=== PATIENT | female | born 1995 | race Caucasian/White ===

== ENCOUNTER 2016-12-17 11:22 | Inpatient (IN) | payer BC, OTHER ==
[~2016-12-17] VITALS: Ht 157.5 cm; Wt 63.5 kg
[2016-12-17] MEDS ORDERED: ONDANSETRON ODT 4 MG TAB.RAPDIS SL PRN (16:30)
[2016-12-17] MEDS ORDERED: MAGNESIUM HYDROXIDE 30 ML LIQUID UDC PO PRN (16:30)
[2016-12-17] MEDS ORDERED: IBUPROFEN 600 MG TABLET PO PRN (16:30)
[2016-12-17] MEDS ORDERED: ACETAMINOPHEN 325 MG TABLET PO PRN (16:30)
[2016-12-17] MEDS ORDERED: diphenhydrAMINE 50 MG CAPSULE PO PRN (16:30)
[2016-12-17] MEDS ORDERED: LOPERAMIDE HCL 2 MG CAPSULE PO PRN ×2 (16:30)
[2016-12-17] MEDS ORDERED: BUPRENORPHINE HCL 2 MG TAB.SUBL SL PRN (16:30)
[2016-12-17] MEDS ORDERED: MAG HYDROX/AL HYDROX/SIMETH 30 ML LIQUID UDC PO PRN (16:30)
[2016-12-17] MEDS ORDERED: CLONIDINE HCL 0.1 MG TABLET PO PRN (16:30)
[2016-12-17] MEDS ORDERED: MIRALAX 17 GM POWD.PACK PO PRN (16:30)
[2016-12-17] MEDS ORDERED: DICYCLOMINE HCL 20 MG TABLET PO PRN (16:30)
[2016-12-17] MEDS ORDERED: ONDANSETRON 4 MG/2 ML VIAL IM PRN (16:30)
[2016-12-17 17:00] VITALS: BP 132/83
--- NOTE | 2016-12-17 17:00 | NUR ---
Pre-admission Notes: Seen client in intake at this time. Appears anxious and nervous. Reassurance was provided. Alert and oriented x 4. Verbally responsive. Able to answers questions readily during pre-admission interview. Patient education provided regarding the admission process. Patient verbalized good understanding. Able to answer questions readily regarding the admission process. Noted with good eye contact. Reports NKA. No seizure history. Verbalizes that she is here to detox from heroin, methamphetamine and Klonopin. 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 She reports that she was diagnosed with Depression and Anxiety in 2014. Her PCP is Dr. Oneill who she has not seen 2 months. COWS 3 BP 132/83, Pulse 95, Temp 98.2, RR 18, O2 sat at 97% via RA.
--- NOTE | 2016-12-17 17:58 | NUR ---
Admission Note: Admitted a 21 year old female under the care of Dr. Shady Barker for medically supervised detoxification from opiates, methamphetamine and BZO. Alert and oriented x 4. No changes in LOC noted since pre-in assessment. Respirations even and unlabored. No SOB noted. Body search done. No contraband found. Skin check done. Skin is intact. Noted with purple discoloration to right inner upper forearm, patient states it was from an abscess that healed. Also noted with bilateral hand trackmarks and bilateral AC trackmarks. Abdomen soft and non-distended. BS (+) in all 4 quadrants. No complains of abdominal pain or discomfort noted. Patient states that her LBM 2 days ago. Voids independently. Able to provide urine for UDS and HCG result. LMP was 1 week ago. Ambulatory ad allyson with steady gait. Substance Use; 1. Heroin - since 2011, Injects 0.5 grams intravenously QD x 30 days, last use was on 12/17/2016 at 1500 0.5 grams. 2. Methamphetamine - since 2014. Snorts "2 lines" QD x 30 days, last use was on 12/16/2016 at 1700 "2 lines" 3. Klonopin - since 8 years ago. Orally takes 3 to 4 mg tabs daily, last use was on 12/17/2016 at 1200 2 mg. Treatment History: 1. [facility] x 30 days [place] to December 2015. Patient states that she has a PCP named Dr. Oneill, last seen 2 months ago. Reports past medical hx of anxiety, depression in 2015. Dr. Barker made aware of patient's admission in the unit and orders were entered.
[2016-12-17 18:10] LABS: *URINE HCG, QUAL NEGATIVE (NEGATIVE); BASOPHILS # (AUTO) 0.1 K/uL (0.0-8.0); BASOPHILS % (AUTO) 1.1 % (0.0-2.0); EOSINOPHILS # (AUTO) 0.1 K/uL (0.0-0.7); EOSINOPHILS % (AUTO) 1.5 % (0.0-7.0); HEMATOCRIT 38.7 % (37-47); HEMOGLOBIN 12.6 G/DL (12.0-16.0); LYMPHOCYTES # (AUTO) 1.6 K/UL (0.8-4.8); LYMPHOCYTES % (AUTO) 23.4 % (20.5-51.5); MEAN CORPUSCULAR HGB CONC 33 g/dL (32.0-37.0); MONOCYTES # (AUTO) 0.6 K/UL (0.1-1.30); MONOCYTES % (AUTO) 9.2 % (0.0-11.0); NEUTROPHILS # (AUTO) 4.5 K/UL (1.8-8.9); NEUTROPHILS % (AUTO) 64.8 % (38.5-71.5); PLATELET COUNT (AUTO) 334 K/UL (150-450); WHITE BLOOD COUNT (AUTO) 6.9 K/UL (4.0-11.2)
[2016-12-17 18:21] LABS: ETHANOL < 3 MG/DL (0-0)
[2016-12-17 18:24] LABS: ALANINE AMINOTRANSFERASE 479 U/L (14-59); ALKALINE PHOSPHATASE 134 U/L (50-136); ASPARTATE AMINOTRANSFERASE 179 U/L (15-37); BILIRUBIN,TOTAL 0.3 mg/dL (0.2-1.0); CARBON DIOXIDE 29 mmol/L (21-32); CHLORIDE 103 mmol/L (98-107); CREATININE 0.7 mg/dL (0.6-1.3); GLUCOSE 116 mg/dL (74-106); MAGNESIUM 2.1 mg/dL (1.8-2.4); POTASSIUM 3.9 mmol/L (3.5-5.1); TOTAL PROTEIN, SERUM 7.6 g/dL (6.4-8.2); UREA NITROGEN, BLOOD 9 mg/dL (7-18)
[2016-12-17] MEDS ORDERED: LORAZEPAM 2 MG/1 ML VIAL IM PRN (18:30)
[2016-12-17] MEDS ORDERED: LORAZEPAM 1 MG TABLET PO PRN ×2 (18:30)
[2016-12-17 18:40] LABS: *AMPHETAMINE, URINE POSITIVE (NEGATIVE); *BARBITURATE, URINE NEGATIVE (NEGATIVE); *CANNABINOID, URINE NEGATIVE (NEGATIVE); *COCCAINE, URINE NEGATIVE (NEGATIVE); *OPIATE, URINE POSITIVE (NEGATIVE); *PHENCYCLIDINE SCREEN,URINE NEGATIVE (NEGATIVE)
--- NOTE | 2016-12-17 18:57 | NUR ---
End of Shift Notes: Endorsed patient to night nurse. Patient is in her room. No changes noted since upon admission. Last COWS 3. Safety precautions in place. On fall and seizure precautions. Call light kept in reach. Will continue to monitor.
--- NOTE | 2016-12-17 19:08 | NUR ---
Start of shift note Received report from day shift nurse. Pt is a 21 yo female, A+Ox4, presenting to [facility] for Opiate/Benzo/ Methamphetamine dependence. Pt has NKA, is on Full Code status, and on Regular diet. Pt has HX of Depression, Anxiety, and Spinal tap. Pt is on Fall and Seizure precautions. Pt is on 5 day Ativan and 5 day Subutex tapers, tolerated well. No s/s of distress noted at this time. Respirations even and unlabored. Will continue to monitor.
[2016-12-17 20:03] VITALS: BP 125/72
[2016-12-17] MEDS: GABAPENTIN 300 MG CAPSULE PO SCH (20:53)
[2016-12-17] MEDS ORDERED: LORAZEPAM 1 MG TABLET PO SCH (21:00)
[2016-12-17] MEDS: ACETAzolamide 250 MG TABLET PO SCH (21:06)
[2016-12-18 00:42] VITALS: BP 122/70
[2016-12-18 04:08] VITALS: BP 120/75
[2016-12-18] MEDS: METHOCARBAMOL 750 MG TABLET PO PRN (05:46)
[2016-12-18] MEDS: HYDROXYZINE PAMOATE 25 MG CAPSULE PO PRN (05:46)
--- NOTE | 2016-12-18 05:52 | NUR ---
PRN Robaxin, Vistaril, and Bentyl Pt c/o anxiety, muscle pain and stomach cramps and requested for PRN Robaxin, Vistaril, and Bentyl. Medications given and tolerated well. Will reassess within 1 HR. Will continue to monitor.
--- NOTE | 2016-12-18 06:50 | NUR ---
PRN Robaxin, Bentyl, and Vistaril Reassessment Medications effective. No s/s of ASE/distress noted at this time. Respirations even and unlabored. Will continue to monitor.
--- NOTE | 2016-12-18 07:00 | NUR ---
End of shift note Pt is a 21 yo female, A+Ox4, presenting to [facility] for Opiate/Benzo/ Methamphetamine dependence. Pt has NKA, is on Full Code status, and on Regular diet. Pt has HX of Depression, Anxiety, and Spinal tap. Pt is on Fall and Seizure precautions. Pt is on 5 day Ativan and 5 day Subutex tapers, tolerated well. Pt was given PRN Robaxin, Vistariol, and Bentyl @0552. Pt slept for a total of 10 HRS. Last COWS: 2 and Last CIWA: 2 @0400. No s/s of distress noted at this time. Respirations even and unlabored. Will endorse to day shift nurse.
[2016-12-18 08:00] VITALS: BP 90/62
--- NOTE | 2016-12-18 08:30 | NUR ---
Start of Shift Notes: Received patient in her room. Alert and oriented x 4. Respirations even and unlabored. No SOB noted. Skin warn and dry to touch. Abdomen soft and non-distended with (+) BS in all 4 quadrants. No complains of N/V/D or constipation noted. Bladder non-distended. Voids independently. Ambulatory ad allyson with steady gait. Patient is a 21 year old female admitted for opiate, metamphetamine and BZO dependence who was placed on a modified 5-day Ativan and 5-day Subutex taper as ordered. Initial taper will be started today. Prior to admssion, patient was using 1/2 gram of IV heroin, "2 lines" of methamphetamine and 3 to 4 mg of Klonopin, Has past medical hx of depression and anxiety, and spinal fluid tap in 2011. NKA. FULL CODE. Regular diet. On fall and seizure precautions. Educated patient on her current plan of care for the day and her medication regimen. Encouraged oral fluid intake and encouraged group participation to learn new skills to prevent relapse.
[2016-12-18] MEDS ORDERED: BUPRENORPHINE HCL 2 MG TAB.SUBL SL SCH (09:00)
[2016-12-18] MEDS ORDERED: TUBERCULIN,PURIF.PROT.DERIV. 5 TU/0.1 ML TEST ID ONE (09:00)
[2016-12-18] MEDS ORDERED: LORAZEPAM 1 MG TABLET PO SCH (09:00)
[2016-12-18] MEDS: ACETAzolamide 250 MG TABLET PO SCH ×2 (09:22→20:22)
[2016-12-18] MEDS: GABAPENTIN 300 MG CAPSULE PO SCH ×3 (09:22→20:22)
[2016-12-18] MEDS: MULTIVITAMINS,THERAPEUTIC TABLET PO SCH (09:22)
[2016-12-18] MEDS: ESCITALOPRAM OXALATE 10 MG TABLET PO SCH (10:29)
[2016-12-18] MEDS: QUETIAPINE FUMARATE 25 MG TABLET PO SCH ×3 (10:29→17:00)
--- NOTE | 2016-12-18 10:40 | NUR ---
MD communication Notified Dr Barker of pt EKG results "sinus tachycardia, possible left atrial enlargement, borderline ECG". NNO at this time.
[2016-12-18 12:00] VITALS: BP 103/68
[2016-12-18] MEDS: BUPRENORPHINE HCL 2 MG TAB.SUBL SL SCH ×3 (12:31→20:25)
[2016-12-18] MEDS: LORAZEPAM 1 MG TABLET PO SCH ×3 (12:31→20:22)
--- NOTE | 2016-12-18 15:59 | NUR ---
Gabapentin 300 mg PO not administered: Gabapentin 300 mg PO at 1500 not given. Patient is seen laying in bed with eyes closed. Breathing even and unlabored. In no distress noted.
[2016-12-18 16:00] VITALS: BP 106/64
--- NOTE | 2016-12-18 17:34 | NUR ---
Seroquel 50 mg not administered: Patient noted to be dozing on and off. However, able to verbalize her needs and her withdrawal symptoms. COWS 5/CIWA 3. MD aware. Per MD, ok to hold Seroquel 50 mg PO at this time, but give Ativan 2 mg PO and Subutex 4 mg SL as scheduled per taper. Will continue to monitor. VS stable.
--- NOTE | 2016-12-18 18:45 | NUR ---
End of Shift Notes: Patients modified 5-day Ativan and 5-day Subutex taper was initiated today. No adverse reactions noted. VS monitored closely. No significant abnormalities noted. Withdrawal symptoms were closely monitored. Initial COWS 8/CWA 8. Patient presented with anxiety, agitation, sweating, chills, cold flashes, piloerection of the skin, muscle aches and pains and abdominal discomfort. Last COWS 5/CIWA 3. Per patient, Ativan and Subutex has been helping her with her withdrawal symptoms. Patient was unable to participate in group and activity sessions due to her withdrawal symptoms. On fall and seizure precautions. Safety precautions in place. Will continue to monitor closely.
--- NOTE | 2016-12-18 19:50 | NUR ---
START OF SHIFT NOTE Pt is a 21 y/o female admitted for Heroin, Meth, and Klonopin dependence and use. Pt has NKA but reported a PMH of depression, anxiety, and spinal fluid (2011). Per day shift nurse pt was placed on a 5 day Subutex and Ativan (day 1). Per day shift nurse pt isn't having any a/r or s/e from the medication but is noted to be overly sedated. Pt didn't receive any PRNS during the day shift but Seroquel dose was held. Last COW: 5 and CIWA: 3 (1600). At this time pt is noted leaning to the left side of the bed asleep (side rail up for clients safety). Pt is aroused by name, but cannot keep eyes open and constantly falls asleep in the middle of conversation. Pt's breathing is even and unlabored; respirations are 12 breaths per minute. Pt denies any pain/discomfort at this time. Pt was encouraged to notify staff of any changes in condition or of any concerns. Pt verbalized an understanding. All safety measures in place. Will continue to monitor.
[2016-12-18 20:00] VITALS: BP 111/75
[2016-12-18] MEDS ORDERED: QUETIAPINE FUMARATE 100 MG TABLET PO SCH (21:00)
[2016-12-19] VITALS: BP 100/69
[2016-12-19 04:00] VITALS: BP 103/60
[2016-12-19 05:06] LABS: HEPATITIS B SURFACE AG Negative (Negative)
--- NOTE | 2016-12-19 06:18 | NUR ---
END OF SHIFT NOTE/HAND OFF NOTE Pt is a 21 y/o female admitted for Heroin, Meth, and Klonopin dependence and use. Pt has NKA but reported a PMH of depression, anxiety, and spinal fluid (2011). Pt continues on a 5 day Subutex and Ativan (day 2) and is tolerating medication well with no s/e or a/r noted or reported; however per contract technician doctor Seroquel 100 mg PO HS dose was held due to pt being heavily sedated. Last COW: 1 and CIWA: 0 (0400). Pt slept for a total of 7 hours. No changes in condition. All safety measures in place. Endorsed to nurse C.F to ensure monitoring is continued.
--- NOTE | 2016-12-19 07:15 | NUR ---
START OF SHIFT NOTE: RECEIVED PT FROM MAT TESTER NURSE, PT IS IN STABLE CONDITION AT THIS TIME NO S/S OF PAIN OR DISCOMFORT, PT IS SLEEPING AT THIS TIME NO REPORT OF SEIZURE ACTIVITY. PT IS ADMITTED FOR METH/BENZO/OPIATE WITHDRAWAL/DEPENDENCE. LAST COWS NOTED 1 AND CIWA 1. WILL CONTINUE TO MONITOR PT FOR ANY CHANGES.
[2016-12-19 09:00] VITALS: BP 128/92
[2016-12-19] MEDS ORDERED: LORAZEPAM 1 MG TABLET PO SCH (09:00)
[2016-12-19] MEDS ORDERED: BUPRENORPHINE HCL 2 MG TAB.SUBL SL SCH ×2 (09:00→15:00)
[2016-12-19] MEDS: QUETIAPINE FUMARATE 25 MG TABLET PO SCH (09:04)
[2016-12-19] MEDS: MULTIVITAMINS,THERAPEUTIC TABLET PO SCH (09:04)
[2016-12-19] MEDS: GABAPENTIN 300 MG CAPSULE PO SCH ×3 (09:04→21:47)
[2016-12-19] MEDS: LORAZEPAM 1 MG TABLET PO SCH ×2 (09:05→15:00)
[2016-12-19] MEDS: ESCITALOPRAM OXALATE 10 MG TABLET PO SCH (09:05)
[2016-12-19] MEDS: BUPRENORPHINE HCL 2 MG TAB.SUBL SL SCH ×2 (09:05→15:00)
[2016-12-19] MEDS: ACETAzolamide 250 MG TABLET PO SCH ×2 (09:05→21:48)
[2016-12-19 09:38] LABS: BILIRUBIN,DIRECT 0.1 mg/dL (0.0-0.2); BILIRUBIN,TOTAL 0.3 mg/dL (0.2-1.0); CREATININE 0.9 mg/dL (0.6-1.3); MAGNESIUM 2.1 mg/dL (1.8-2.4); POTASSIUM 3.7 mmol/L (3.5-5.1); TOTAL PROTEIN, SERUM 8.4 g/dL (6.4-8.2)
[2016-12-19 13:00] VITALS: BP 102/62
--- NOTE | 2016-12-19 14:00 | NUR ---
1500 SCHEDULED MEDICATIONS WERE HELD D/T SEDATION. RE-EVALUATED PT'S MEDICATIONS. WITH NEW ORDERS NOTED AND CARRIED OUT
[2016-12-19] MEDS: HYDROXYZINE PAMOATE 25 MG CAPSULE PO PRN (16:44)
[2016-12-19] MEDS: METHOCARBAMOL 750 MG TABLET PO PRN (16:44)
--- NOTE | 2016-12-19 16:56 | NUR ---
PT VERBALIZES HER BODY HURTS AND DOES NOT FEEL WELL, SHE VERBALIZES SHE IS WITHDRAWING, DESPITE HER UNABLE TO SIT UP OR STAY FULLY ALERT AND AWAKE, EXPLAINED TO PT SHE IS TOO SEDATED FOR MEDICATIONS, PT THEN BECAME AGITATED. PRN ROBAXIN AND VISTARIL WERE ADMINISTERED TO HELP WITH DISCOMFORT AND ANXIETY.
--- NOTE | 2016-12-19 17:10 | NUR ---
PT IS NOW PLACED ON 1:1 FOR SAFETY PRECAUTIONS
[2016-12-19 17:52] VITALS: BP 138/90
[2016-12-19] MEDS ORDERED: LORAZEPAM 1 MG TABLET PO ONE (19:00)
[2016-12-19] MEDS ORDERED: BUPRENORPHINE HCL 2 MG TAB.SUBL SL ONE (19:00)
--- NOTE | 2016-12-19 19:13 | NUR ---
END OF SHIFT NOTE: PT IS SEDATED AND PLACE ON A 1:1 FOR SAFETY PRECAUTIONS, PT IS ADMITTED TO [facility] FOR OPIATE/METH/BENZO WITHDRAWAL/DEPENDENCE. PT HAS NEW 1 TIME ODER FOR SUBUTEX AND ATIVAN IF PT HAS DISCOMFORT AND SHOWING WITHDRAWING SYMPTOMS. PTS LAST CIWA 5 AND COWS 3, PT WAS AGITATED AND HYSTERICAL ASKING TO SPEAK WITH CHON PINA REGARDING MEDICATIONS. AFTER PT WENT BACK TO HER ROOM PT FELL ASLEEP. WILL ENDORSE PT TO TRANSMISSION AND COORDINATION ENGINEER NURSE.
--- NOTE | 2016-12-19 19:48 | NUR ---
START OF SHIFT NOTE Pt is a 21 y/o female admitted for Heroin, Meth, and Klonopin dependence and use. Pt has NKA but reported a PMH of depression, anxiety, and spinal fluid (2011). Per day shift nurse pt continues on a 5 day Subutex and Ativan taper (day 2). Per day shift nurse pt isn't having any a/r or s/e from the medication but is still heavily sedated and taper medications had to be held. Pt received Robaxin 750 mg PO PRN and Vistaril 25 mg PO PRN during the day shift. Routine Seroquel order was changed to Q12H PRN and a x 1 order for Subutex 4 mg PO and Ativan 2 mg PO PRN was given per Dr in the event that the pt wakes up and experiences withdrawal symptoms.Last COW: 3 and CIWA: 5 (1600). Pt was placed on 1:1 supervision r/t safety precautions. At this time Pt is noted sleeping in bed with no signs of discomfort/distress. Pt's breathing is even and unlabored; respirations are 12 breaths per minute. Pt is partially aroused with touch but soon after waking up she falls back asleep. Pt cannot cooperate with assessment at this time due to sedation. Deferred until pt is awake and alert. All safety measures in place. Will continue to monitor.
[2016-12-19 20:00] VITALS: BP 108/64
[2016-12-19] MEDS: QUETIAPINE FUMARATE 25 MG TABLET PO PRN (21:47)
--- NOTE | 2016-12-19 21:47 | NUR ---
SEROQUEL PRN ADMINISTRATION Pt woke up stating " I just feel depressed. I was on a 3 day run and I wasn't getting any sleep." Pt is notably agitated and was offered Seroquel. With pt's verbal consent Seroquel 25 mg PO PRN was given. Pt was encouraged to notify staff of any changes in condition or of any concerns. Pt verbalized an understanding. All safety measures in place. Will monitor for effectiveness.
--- NOTE | 2016-12-19 22:47 | NUR ---
SEROQUEL PRN REASSESSMENT Pt is asleep at this time with no signs of discomfort/distress noted. Breathing is even an unlabored. Pt was aroused by light touch and the calling of her name. Pt stated " I'm better." and then fell right back asleep. PRN effective. All safety measures in place. Will continue to monitor.
[2016-12-20] VITALS: BP 95/64
[2016-12-20] MEDS ORDERED: LORAZEPAM 1 MG TABLET PO ONE ×2 (03:00→13:00)
[2016-12-20] MEDS: METHOCARBAMOL 750 MG TABLET PO PRN (03:07)
--- NOTE | 2016-12-20 03:07 | NUR ---
ATIVAN AND ROBAXIN PRN ADMINISTRATION Pt woke up requesting to be seen by her nurse stating " I don't feel good. I'm shaky and my body is aching. Can I get some medicine." Upon assessment pt is notably tremulous and anxious aeb limbs shaking and an accelerated HR of 128. Breathing is even and unlabored. Pupils are reactive to light and measure about 3 cm. No sweat observable and pt denies having any chills. Pt constantly dozes off during assessment and has to be re-aroused by calling her name. Vitals signs are as follows: BP: 95/65 HR: 128 R: 16 T: 98.3 O2 SAT: 95 %Pain:6/10 CIWA: 14. Pt received Ativan 2 mg PO x [address] Barker and Robaxin 750 mg PO PRN. Pt was encouraged to notify staff of any changes in condition or of any further concerns. Pt verbalized an understanding and then stated " I'm more awake than I was earlier. Can I go down for a cigarette?" Pt was encouraged to rest and give the medicine time to take effect but the pt still insisted on going for a smoke break. Pt was assisted to the smoking patio in a wheelchair by a [facility] staff member. Will monitor for effectiveness.
[2016-12-20] MEDS ORDERED: LORAZEPAM 1 MG TABLET ONE (03:17)
[2016-12-20 04:00] VITALS: BP 116/57
--- NOTE | 2016-12-20 04:00 | NUR ---
ATIVAN AND ROBAXIN PRN REASSESSMENT Pt's skin is dry and intact. Tremors can be felt but are not visible. Pt is still having trouble staying awake during assessment. Pt has to be aroused several times. Pt's HR is 113 at this time. Breathing is even and unlabored. Pt stated " I feel a little better. My body aches are going away." CIWA: 5 . PRNS effective. Pt was encouraged to notify staff of any changes in condition or of any concerns. Pt verbalized an understanding. All safety measures in place. Will continue to monitor.
--- NOTE | 2016-12-20 06:55 | NUR ---
END OF SHIFT NOTE Pt is a 21 y/o female admitted for Heroin, Meth, and Klonopin dependence and use. Pt has NKA but reported a PMH of depression, anxiety, and spinal fluid (2011). Pt continues on a 5 day Subutex and Ativan (day 3). Pt was heavily sedated throughout the shift and missed her 2100 dose of Subutex and Ativan. Pt woke up around 0300 and upon assessment CIWA was a 14. Pt was given Ativan 2 mg PO x 1 . Pt also received Seroquel 25 mg PO PRN and Robaxin 750 mg PO PRN during the shift. Pt continues on 1:1 supervision for safety precautions. Last COW: 5 and CIWA: 4 (0400). Pt slept for a total of 7 hours. All safety measures in place. Will endorse to the oncoming nurse.
--- NOTE | 2016-12-20 07:15 | NUR ---
Start Of Shift Report received. Pt is a 21 y/o female admitted on 12/17/16 for Heroin, Meth, and Klonopin dependence. Pt full code regular diet on fall and seizure precautions, denies any food or drug allergies. Pt continues on a 5 day Subutex and 5 day Ativan taper tolerating well. Pt is on a 1:1 supervision r/t safety precautions. last night pt received PRN Seroquel Ativan and Robaxin medications effective per shift production supervisor nurse. At this time Pt is noted sleeping in bed with no signs of discomfort/distress. Pt's breathing is even and unlabored at 12 breaths per minute. pt last CIWA was a 4 and COWS was a 5 taken at 0400. Pt slept a total of 7 hours last night. fluids encouraged to facilitate with detox process. All needs met, bed lock in lowest position, will continue to monitor and provide care.
[2016-12-20 08:00] VITALS: BP 119/70
[2016-12-20] MEDS ORDERED: BUPRENORPHINE HCL 2 MG TAB.SUBL SL SCH ×2 (09:00)
[2016-12-20] MEDS ORDERED: LORAZEPAM 1 MG TABLET PO SCH (09:00)
[2016-12-20] MEDS: GABAPENTIN 300 MG CAPSULE PO SCH ×3 (09:53→20:08)
[2016-12-20] MEDS: MULTIVITAMINS,THERAPEUTIC TABLET PO SCH (09:54)
[2016-12-20] MEDS: ACETAzolamide 250 MG TABLET PO SCH ×2 (09:54→20:08)
[2016-12-20] MEDS: LORAZEPAM 1 MG TABLET PO SCH ×4 (09:54→20:08)
[2016-12-20] MEDS: ESCITALOPRAM OXALATE 10 MG TABLET PO SCH (09:54)
[2016-12-20 12:00] VITALS: BP 121/90
[2016-12-20] MEDS: HYDROXYZINE PAMOATE 25 MG CAPSULE PO PRN (12:48)
[2016-12-20] MEDS: ACETAMINOPHEN ES 500 MG TABLET PO SCH ×2 (13:24→20:07)
--- NOTE | 2016-12-20 13:24 | NUR ---
ONETIME ATIVAN Upon assessment MD placed order for a one time Ativan 1 mg. Pts CIWA was a 6. All needs met will continue to monitor.
[2016-12-20] MEDS ORDERED: IBUPROFEN 800 MG TABLET PO PRN (13:30)
[2016-12-20] MEDS: busPIRone 10 MG TABLET PO SCH ×2 (15:09→17:51)
[2016-12-20] MEDS: BUPRENORPHINE HCL 2 MG TAB.SUBL SL SCH ×2 (15:10→20:08)
[2016-12-20 16:00] VITALS: BP 126/82
[2016-12-20] MEDS ORDERED: IBUPROFEN 600 MG TABLET PO PRN (16:30)
[2016-12-20] MEDS: HYDROXYZINE PAMOATE 25 MG CAPSULE PO SCH ×2 (16:30→22:30)
--- NOTE | 2016-12-20 19:21 | NUR ---
End Of Shift Pt is a 21 y/o female admitted on 12/17/16 for Heroin, Meth, and Klonopin dependence. Pt full code regular diet on fall and seizure precautions, denies any food or drug allergies. Pt continues on a 5 day Subutex and 5 day Ativan taper tolerating well. Pt remains compliant with the treatment plan. Patient encouraged adequate PO fluid intake as tolerated. Upon assessment patient presented with mild anxiety, and barely sweating with his last COWS score was a 4 and his CIWA was a 4. @1600. Detox medication effective at reducing withdrawal symptoms. Patient encouraged to attend group therapies/sessions to learn new coping skills to recent relapse, patient denies SI/HI. Pt ate all of the meals with total fluid intake 1683ml with 3 void and 1 bowel movement Pt received onetime Ativan 1 mg per MD order. Safety measures in place. Call light kept within reach. Patient endorsed to overnight houseperson nurse, all pertinent information discussed.
--- NOTE | 2016-12-20 19:58 | NUR ---
START OF SHIFT NOTE Pt is a 21 y/o female admitted for Heroin, Meth, and Klonopin dependence and use. Pt has NKA but reported a PMH of depression, anxiety, and spinal fluid (2011). Per day shift nurse pt continues on a 5 day Subutex and Ativan taper (day 3) and is tolerating medication well with no s/e or a/r reported. Pt received Ativan 1 mg PO x 1 during the day shift. Last COW: 4 and CIWA: 4 (1600). Pt's 1:1 supervision was discontinued during the day shift. At this time pt is in her bathroom putting on makeup. Upon assessment pt began crying and breathing rapidly. Pt stated " I just have so much anxiety." Pt reported having chills and hot flashes. Mild tremors observed. Nursing interventions implemented to help the pt feel more at ease. Vitals signs were taken and the continuing education dean doctor was contacted via charge nurse. New orders given for a EKG STAT due to pt's resting HR of 144. Orders noted and carried out. All safety measures in place. Will continue to monitor.
[2016-12-20 20:00] VITALS: BP 154/85
--- NOTE | 2016-12-20 20:15 | NUR ---
CLONIDINE PRN ADMINISTRATION Pt stated " I feel anxious and restless. Can I have something to help me relax?" Clonidine 0.1 mg PO PRN was given. Pt was encouraged to notify staff of any changes in condition or of any concerns. Pt verbalized an understanding. All safety measures in place. Will monitor for effectiveness.
--- NOTE | 2016-12-20 21:15 | NUR ---
CLONIDINE PRN REASSESSMENT Pt stated " I feel a little better." PRN was effective. All safety measures in place. Will monitor for effectiveness
[2016-12-21] VITALS: BP 133/90
--- NOTE | 2016-12-21 00:23 | NUR ---
RN note PRN Hydralazine Dr. Ley ordered Hydralazine 25 mg PO Q6H PRN for Systolic >160 mmHg and Diastolic > 100 mmHg.
[2016-12-21] MEDS ORDERED: hydrALAZINE HCL 25 MG TABLET PO PRN (00:30)
[2016-12-21 04:00] VITALS: BP 106/62
[2016-12-21] MEDS: HYDROXYZINE PAMOATE 25 MG CAPSULE PO SCH ×4 (04:30→22:30)
--- NOTE | 2016-12-21 04:52 | NUR ---
VISTARIL MEDICATION REFUSAL Pt refused Vistaril 50 mg PO PRN at this time. Pt was encouraged x 3 with risks and benefits explained , but the pt still declined medication. Medication was accidentally documented as administered in the EMAR. Medication was not administered and was not pulled from the Pyxis.
[2016-12-21] MEDS: ACETAMINOPHEN ES 500 MG TABLET PO SCH ×3 (05:00→20:15)
--- NOTE | 2016-12-21 07:11 | NUR ---
END OF SHIFT NOTE Pt is a 21 y/o female admitted for Heroin, Meth, and Klonopin dependence and use. Pt has NKA but reported a PMH of depression, anxiety, and spinal fluid (2011). Pt continues on a 5 day Subutex and Ativan (day 4). Pt was given Clonidine 0.1 mg PO PRN during the shift. Last COW: 3 and CIWA: 1 (0400). Pt slept for a total of 7 hours. All safety measures in place. Will endorse to the oncoming nurse.
[2016-12-21 08:00] VITALS: BP 105/62
--- NOTE | 2016-12-21 08:00 | NUR ---
START OF SHIFT NOTE Received patient this morning Aox4. Patient presents drowsy and fatigued. She states she feels anxious, shakey, and is hot/cold. She is on 5 day Ativan/5 day Subutex taper. COWS 6 CIWA 5 this morning. PRN Clonidine given per university teacher and patient slept 8 hours. Encouraged patient to increase fluid intake. Encouraged patient to take a shower and attend groups and activities this shift. Will provide safe and supportive environment. Will monitor closely and offer help as needed. All needs currently met.
[2016-12-21] MEDS: ACETAzolamide 250 MG TABLET PO SCH ×2 (08:26→20:15)
[2016-12-21] MEDS: LORAZEPAM 1 MG TABLET PO SCH ×3 (08:26→20:15)
[2016-12-21] MEDS: MULTIVITAMINS,THERAPEUTIC TABLET PO SCH (08:26)
[2016-12-21] MEDS: busPIRone 10 MG TABLET PO SCH ×3 (08:27→16:07)
[2016-12-21] MEDS: ESCITALOPRAM OXALATE 10 MG TABLET PO SCH (08:27)
[2016-12-21] MEDS: BUPRENORPHINE HCL 2 MG TAB.SUBL SL SCH ×3 (08:27→20:16)
[2016-12-21] MEDS: GABAPENTIN 300 MG CAPSULE PO SCH ×3 (08:27→20:15)
[2016-12-21] MEDS ORDERED: LORAZEPAM 1 MG TABLET PO SCH (09:00)
[2016-12-21] MEDS ORDERED: BUPRENORPHINE HCL 2 MG TAB.SUBL SL SCH (09:00)
[2016-12-21 12:00] VITALS: BP 122/89
[2016-12-21 16:00] VITALS: BP 123/83
--- NOTE | 2016-12-21 17:58 | NUR ---
CLIENT NOTED TO BE UNSTEADY WALKING IN HALLS. CLIENT PLACED ON 1:1 FOR SAFETY REASONS
--- NOTE | 2016-12-21 18:51 | NUR ---
END OF SHIFT NOTE PATIENT CONTINUES ON 5 DAY ATIVAN/5 DAY SUBUTEX TAPER. NO PRNS GIVEN DURING SHIFT. COWS 6 CIWA 6. PATIENT PRESENTS DRAMATIC AND ANXIOUS. SHE PRESENTS WITH UNSTEADY GAIT. CLIENT PLACED ON 1:1 FOR SAFETY MEASURES AND OBSERVATION. COWS 6 CIWA 6. TB TEST READ DURING SHIFT AND WAS NEGATIVE. BED LOCKED IN LOWEST POSITION, CALL [place] WITHIN REACH, SIDE RAILS UP X2 AND PADDED. SITTER AT BEDSIDE. WILL ENDORSE TO NIGHT NURSE.
--- NOTE | 2016-12-21 19:45 | NUR ---
START OF SHIFT Received report from day shift nurse. Pt is in her room resting. 1:[address] for safety due to unsteady gait Pt is a 21 yo female admitted to [facility] on 12/17 for opiate and BZD dependence. She is A&O x4 and ambulatory. NKA, full code status, and on a regular diet. She has a PMH of anxiety, depression, and spinal tap in 2011. On admission she reported using heroin IV 0.5 grams per day, klonopin 3-4mg per day, and methamphetamine "2 lines". She is ordered a 5 days Subutex taper and 5 day Ativan taper. Pt presents crying and she reports anxiety, chills, and body aches. Provided support. Tapers due tonight. Fall and seizure precautions in place. Bed is down with call light in reach.
[2016-12-21 20:00] VITALS: BP 111/72
[2016-12-22] VITALS: BP 110/66
[2016-12-22 04:00] VITALS: BP 112/68
[2016-12-22] MEDS: HYDROXYZINE PAMOATE 25 MG CAPSULE PO SCH ×4 (04:32→22:26)
[2016-12-22] MEDS: ACETAMINOPHEN ES 500 MG TABLET PO SCH (04:32)
--- NOTE | 2016-12-22 07:05 | NUR ---
END OF SHIFT Report provided to day shift nurse. Pt is lying in bed resting with a 1:[address] for safety due to unsteady gait Pt is a 21 yo female admitted to [facility] on 12/17 for opiate and BZD dependence. She is A&O and ambulatory with minimal assistance. She uses a wheelchair as needed. NKA, full code status, and on a regular diet. She has a PMH of anxiety, depression, and spinal tap in 2011. On admission she reported using heroin IV 0.5 grams per day, klonopin 3-4mg per day, and methamphetamine 2 lines. She is ordered a 5 days Subutex taper and 5 day Ativan taper. No PRN medications administered. Last COWS 7 and CIWA 5. She drank 1855mL and slept for 7 hours. Fall and seizure precautions in place. Bed is down with call light in reach.
--- NOTE | 2016-12-22 07:05 | NUR ---
Start of Shift Endorsement received from nightshift nurse. Pt is a 21 y/o female admitted for Heroin, methamphetamine and klonopin dependence. Pt has been placed on a 5 day Subutex and 5 day ativan taper. Pt is moderately withdrawing at this time AEB COWS 7, CIWA 5 at 0400. Pt did not receive any PRN medications and reports sleeping for 7 hours. VS WNL with an elevated HR above 100. Full Code. PT is alert and oriented x4. Pt is in STABLE condition at this time. Remains compliant with medication and diet regimen. All needs have been met, All safety measures in place per hospital policy. Bed in lowest position, side rails up x2, call-light within reach. Will continue to monitor
[2016-12-22 08:00] VITALS: BP 115/78
[2016-12-22] MEDS: ACETAzolamide 250 MG TABLET PO SCH ×2 (08:45→20:36)
[2016-12-22] MEDS: ESCITALOPRAM OXALATE 10 MG TABLET PO SCH (08:45)
[2016-12-22] MEDS: MULTIVITAMINS,THERAPEUTIC TABLET PO SCH (08:45)
[2016-12-22] MEDS: busPIRone 10 MG TABLET PO SCH ×3 (08:46→16:20)
[2016-12-22] MEDS: GABAPENTIN 300 MG CAPSULE PO SCH ×2 (08:46→14:18)
[2016-12-22] MEDS ORDERED: BUPRENORPHINE HCL 2 MG TAB.SUBL SL SCH (09:00)
[2016-12-22] MEDS ORDERED: LORAZEPAM 1 MG TABLET PO SCH ×2 (09:00→21:00)
[2016-12-22 12:00] VITALS: BP 135/92
[2016-12-22] MEDS ORDERED: ACETAMINOPHEN 325 MG TABLET PO PRN (12:30)
[2016-12-22] MEDS: BUPRENORPHINE HCL 2 MG TAB.SUBL SL SCH ×3 (13:18→20:36)
[2016-12-22] MEDS ORDERED: LORAZEPAM 1 MG TABLET PO ONE (14:00)
--- NOTE | 2016-12-22 14:23 | NUR ---
PT repeatedly displays med-seeking behavior. Pt has requested more medications from the doctor and repeatedly asks to speak to the doctor.
[2016-12-22 16:00] VITALS: BP 140/96
[2016-12-22] MEDS: QUETIAPINE FUMARATE 25 MG TABLET PO PRN (16:20)
--- NOTE | 2016-12-22 18:41 | NUR ---
End of Shift Endorsement received from nightshift nurse. Pt is a 21 y/o female admitted for Heroin, methamphetamine and klonopin dependence. Pt has been placed on a 5 day Subutex and 5 day ativan taper. Pt is moderately withdrawing at this time AEB COWS 11, CIWA 12 at 1600. Pt received PRN Seroquel and one time dose of Subutex 4mg and one time dose of Ativan per Dr. Barker. Pt repeatedly shows med seeking behavior. Pt has been educated on deep breathing technique to help relieve anxiety. Pt appears agitated despite receiving several PRN medications. VS WNL with an elevated HR above 120. Full Code. PT is alert and oriented x4. Pt is in STABLE condition at this time. Remains compliant with medication and diet regimen. All needs have been met, All safety measures in place per hospital policy. Bed in lowest position, side rails up x2, call-light within reach. Will continue to monitor
--- NOTE | 2016-12-22 18:49 | NUR ---
START OF SHIFT NOTE Patient endorsed by oil rag washer nurse. Report received. Patient is a 21 year old female admitted to [facility] on 12/17/2016 for Benzodiazepines, Opioid, and Methamphetamine dependence, placed on 5 day Ativan and 5 day Subutex taper since 12/18/2016, which tolerated well without ASE. Patient remains compliant with treatment, medications, and diet regime. Patient reports NKA. Patient is on Full Code, is on Regular Diet, is on Fall and Seizures Precautions. Patient denies History of Seizures. Past Medical History: Anxiety, Depression, Spinal fluid (tap) in 2011, Substance abuse, Tobacco dependence. Patient reports substance use: Heroin via IV: "0.5 gram every day since 11/17/2016. Last used 0.5 gram on 12/17/2016". Methamphetamine: "snored 2 lines since 11/17/2016. Last time used 2 lines on 12/16/2016". Klonopin PO: "3-4 mg since 11/17/2016. Last used 2 mg on 12/17/2016". Patient reports Treatment History in "[facility]" during 30 days". Upon admission, patient is in the room. Patient is alert and oriented x4. VS WNL with HR = 119. Patient 's stable at this time. COWS 10, CIWA 9. Patient presented with anxiety, agitation, nervousness, tremors that can felt, sweats, tachycardia, and restlessness. Respirations unlabored and even. Lungs Sounds are clear bilaterally. Bowel Sounds active in all x4 quadrants. Last Bowel Movement was "12/22/16 at 1000". Skin is intact, warm and dry to touch. Patient discoloration on Right arm and track chappell on the both hands. Encouraged fluids as tolerated. All needs met. Safety measures on place. Call light within reach, bed in lowest position and locked, padded rails up bilaterally rails up bilaterally. Will continue to monitor closely. Addendum: 07/18/17 at 0432 by DILLAN GREGORY RN Upon endorsement, patient is in the room.
[2016-12-22 20:00] VITALS: BP 115/78
[2016-12-22] MEDS ORDERED: GABAPENTIN 300 MG CAPSULE PO SCH (21:00)
[2016-12-23] VITALS: BP 130/90
[2016-12-23 04:00] VITALS: BP 124/81
[2016-12-23] MEDS: HYDROXYZINE PAMOATE 25 MG CAPSULE PO SCH ×2 (04:30→10:20)
--- NOTE | 2016-12-23 06:52 | NUR ---
END OF SHIFT NOTE Patient endorsed to dayshift nurse in stable condition. Report given. Patient is a 21 year old female admitted to [facility] on 12/17/2016 for Benzodiazepines, Opioid, and Methamphetamine dependence, continue 5 day Ativan and 5 day Subutex taper since 12/18/2016, which tolerated well without ASE. Patient remains compliant with treatment, medications, and diet regime. Patient reports NKA. Patient is on Full Code, is on Regular Diet, is on Fall and Seizures Precautions. Patient denies History of Seizures. Past Medical History: Anxiety, Depression, Spinal fluid (tap) in 2011, Substance abuse, Tobacco dependence. Patient reports substance use: Heroin via IV: "0.5 gram every day since 11/17/2016. Last used 0.5 gram on 12/17/2016". Methamphetamine: "snored 2 lines since 11/17/2016. Last time used 2 lines on 12/16/2016". Klonopin PO: "3-4 mg since 11/17/2016. Last used 2 mg on 12/17/2016". Patient reports Treatment History in "[facility]" during 30 days". Patient was stable during night. Last COWS at 0400 decreased from 10 to 9, and CIWA decreased from 9 to 4 at 0400. During my shift coordinator patient presented with anxiety, agitation, nervousness, nasal stuffy/moist eyes, tremors that can be felt, sweats, tachycardia, yawning, and restlessness. VS at 0400: T: 98'4; BP: 124/81; HR: 103; RR: 14; O2 SAT: 95%, pain level:"0/10". Respirations are unlabored and even. Patient denies SOB and chest pain. Skin is intact, warm and dry to touch. Patient's discoloration on the Right arm, with track chappell on the both hands. Encouraged fluids as tolerated. Patient slept 8 hours, intake 850 ml, voided x1. All needs met. Safety measures on place. Call light within reach, bed in lowest position and locked, padded rails up bilaterally rails up bilaterally.
--- NOTE | 2016-12-23 07:00 | NUR ---
Start of Shift Notes: Received patient in his room. Appears drowsy and sedated. Unable to carry on a conversation. Oriented x 4. Able to make her needs known. Poor eye contact. Respirations even and unlabored. No SOB noted. Skin warm and dry to touch. Abdomen soft and non-distended with (+) BS in all 4 quadrants. No complains of N/V/D or constipation noted. Bladder non-distended. Hygiene encouraged. Appears disheveled. Ambulatory ad allyson with steady gait. Patient is a 21 year old female admitted on 12/17/2016 for opiate, methamphetamine and BZO dependence who was placed on 5-day Subutex and 5-day Ativan taper that has been extended. Has past medical hx of depression, anxiety and spinal fluid tap. Prior to admission, patient was using 1/2 gram of IV heroin, "2 lines" of methamphetamine and 3 to 4 mg of Klonopin daily x 30 days. Patient has NKA. FULL CODE. Regular diet. On fall and seizure precautions. No seizure history. Educated patient on her current plan of care for the day and her medication regimen, however patient is unable to focus and dozes off. Encouraged oral fluid intake. Will continue to monitor closely.
[2016-12-23 08:00] VITALS: BP 125/82
[2016-12-23] MEDS ORDERED: BUPRENORPHINE HCL 2 MG TAB.SUBL SL SCH ×2 (09:00)
[2016-12-23] MEDS ORDERED: GABAPENTIN 300 MG CAPSULE PO SCH (09:00)
[2016-12-23] MEDS ORDERED: LORAZEPAM 1 MG TABLET PO SCH (09:00)
[2016-12-23] MEDS: ACETAzolamide 250 MG TABLET PO SCH ×2 (10:18→21:48)
[2016-12-23] MEDS: ESCITALOPRAM OXALATE 10 MG TABLET PO SCH (10:19)
[2016-12-23] MEDS: MULTIVITAMINS,THERAPEUTIC TABLET PO SCH (10:19)
[2016-12-23] MEDS: busPIRone 10 MG TABLET PO SCH ×3 (10:19→17:17)
--- NOTE | 2016-12-23 10:20 | NUR ---
Late med administration: Patient woke up agitated, requesting for med to be given at this time. Notified MD Barker. Per , OK to administer all 0900 meds at this time per patient's request. COWS 6/CIWA 4.
--- NOTE | 2016-12-23 10:27 | NUR ---
Vistaril 25 mg PO not adminstered: Patient refused Vistaril 25 mg PO at this time. States, "That does not help me at all." Education provided. Will continue to monitor.
--- NOTE | 2016-12-23 11:45 | NUR ---
Transfer of Care: Care transferred to receiving nurse. All pertinent information were explained and discussed. Last COWS/CIWA and VS also discussed.
--- NOTE | 2016-12-23 11:46 | NUR ---
Assume care Chaplain Resident assumes care of pt during shift after receiving report.
[2016-12-23 12:30] VITALS: BP 128/92
[2016-12-23] MEDS: GABAPENTIN 300 MG CAPSULE PO SCH ×2 (14:18→21:48)
[2016-12-23] MEDS: LORAZEPAM 1 MG TABLET PO SCH ×2 (14:18→21:48)
[2016-12-23] MEDS: BUPRENORPHINE HCL 2 MG TAB.SUBL SL SCH ×2 (14:19→21:49)
[2016-12-23 16:40] VITALS: BP 125/91
[2016-12-23] MEDS: QUETIAPINE FUMARATE 25 MG TABLET PO PRN (17:17)
[2016-12-23] MEDS: HYDROXYZINE PAMOATE 25 MG CAPSULE PO PRN (17:17)
--- NOTE | 2016-12-23 17:20 | NUR ---
PRN Administration Pt made requests to MD for an increase in medication, Dr. Barker educated pt on need to try something new and asked sports book writer to administer Seroquel and Vistaril for pt's anxiety. Pt has been complaining of increasing anxiety related to her perception of being unheard by staff and peers. Will continue to monitor, support and encourage according to plan of care.
--- NOTE | 2016-12-23 18:20 | NUR ---
PRN Re-Assessment Medication effective, pt currently resting in her room with eyes closed. Respirations even and unlabored. Will continue to monitor, support and encourage according to plan of care.
--- NOTE | 2016-12-23 19:29 | NUR ---
End of Shift Report provided to oncoming nurse, pt is in stable condition and cooperative with treatment plan. Pt is a 21 year old female admitted on 12/17/16 for Opiate, methamphetamine and benzodiazepine detoxification. Pt is full code and has NKDA and is on a regular diet. PMH of anxiety, depression and a spinal tap in 2011. Pt is currently on fall and seizure and universal precautions. Pt skin intact. Pt was administered Vistaril at 1027, reportedly ineffective as pt continued to complain of anxiety. Pt is currently on extended 5 day Ativan and Subutex tapers. Pts last COWS of 6 and CIWA of 3 recorded at 1600. Pt has been needy, emotional, somatic and dramatic, requiring support and encouragement thru out shift, able to make needs known .Pt has been noted to be sedated and lethargic at times and continues to request medication. Bed is in low position, with wheels locked, side rails up x2 and call light within reach.
[2016-12-23 20:00] VITALS: BP 119/75
--- NOTE | 2016-12-23 20:00 | NUR ---
START OF SHIFT NOTE PATIENT IN ROOM, RESTING. PATIENT ALERT AND ORIENTED X 3. RESPIRATION EVEN AND UNLABORED. PATIENT NOTED EMOTIONAL, C/O ANXIETY, NOTED PILOERECTION OF SKIN , NO N/V. DENIES ANY PAIN. RELAXATION TECHNIQUE PROVIDED AND POSITIVE ENCOURAGEMENT GIVEN. RECEIVED REPORT FROM DAY SHIFT NURSE. PATIENT IS A 21 YEAR OLD FEMALE, ADMITTED FOR OPIATE/BENZO DEPENDENCE. PATIENT IS ON 5 DAY ATIVAN AND 5 DAY SUBUTEX TAPER. PER DAY SHIFT NURSE, PATIENT HAS BEEN EMOTIONAL, DRAMATIC, REQUIRING SUPPORT AND ENCOURAGEMENT THROUGHOUT THE DAY. PATIENT UNABLE TO FOCUS AND DOZES OFF BUT STILL CONTINUE TO ASK FOR PRN MEDICATIONS. PATIENT WAS GIVEN PRN SEROQUEL AND VISTARIL X 2. LAST COWS 6 AND CIWA 3. ON FALL/SEIZURE PRECAUTION. SAFETY MEASURES IN PLACE. CALL LIGHT IN REACH. WILL CONTINUE TO MONITOR
--- NOTE | 2016-12-23 22:12 | NUR ---
THAD CAMACHO ADMINISTRATION PATIENT REQUESTS FOR SLEEP AID. THAD CAMACHO GIVEN. WILL MONITOR FOR EFFECTIVENESS Addendum: 12/24/16 at 0604 by DAMARIS IRENE LVN ERROR: THIS CHARTING IS FOR ANOTHER PATIENT
--- NOTE | 2016-12-24 | NUR ---
COWS/CIWA/VS PATIENT ASLEEP. COWS/CIWA UNABLE TO ASSESS. NO S/S OF DISTRESS. RESPIRATION EVEN AND UNLABORED. RR 14. SAFETY MEASURES IN PLACE. CALL LIGHT IN REACH. WILL CONTINUE TO MONITOR.
--- NOTE | 2016-12-24 04:00 | NUR ---
COWS/CIWA/VS PATIENT ASLEEP. COWS/CIWA UNABLE TO ASSESS. NO S/S OF DISTRESS. RESPIRATION EVEN AND UNLABORED. RR 15. SAFETY MEASURES IN PLACE. CALL LIGHT IN REACH. WILL CONTINUE TO MONITOR.
--- NOTE | 2016-12-24 07:18 | NUR ---
END OF SHIFT NOTE PATIENT REMAIN ALERT AND ORIENTED X 3. RESPIRATION EVEN AND UNLABORED. PATIENT EMOTIONAL, C/O ANXIETY, NOTED PILOERECTION OF SKIN , NO N/V. DENIES ANY PAIN . CONTINUE PATIENT IS ON 5 DAY ATIVAN AND 5 DAY SUBUTEX TAPER FOR OPIATE AND BENZO DEPENDENCE. CONTINUE TO PROVIDE SUPPORT AND ENCOURAGEMENT DURING SHIFT. DID NOT REQUIRE ANY PRN MEDICATION . ON FALL/SEIZURE PRECAUTION. PATIENT REMAIN FREE OF INJURY. SAFETY MEASURES IN PLACE. CALL LIGHT IN REACH. WILL CONTINUE TO MONITOR. SLEPT9 HOURS. FLUID INTAKE 1,710 ML. VOIDED X 4. BM X 2. LAST COWS 7 AND CIWA 5 .
--- NOTE | 2016-12-24 07:52 | NUR ---
Start of Shift Received report from night staff. Pt is a 21 year old female admitted on 12/17/16 for Heroin, Methamphetamine and Klonopin detoxification. Pt is a full code, on a regular diet and has NKA. Pt has PMH of depression, anxiety and a 2012 Spinal Tap. No seizure history. Pt on universal and fall precautions. Pt had no PRN medication administered during the night cleaner. Last COWS of 7 and CIWA of 5 recorded at 2000. Pt currently on a 5 day Subutex and Ativan taper, tolerating well. Pt slept a total of 9 hours per report. Skin is intact with some discoloration on right FA and track chappell on bi-lateral hands. Warehouse Receiving Supervisor encounters pt in bed resting with eyes closed and even and unlabored respiration. No s/s of distress noted. Bed in low position, wheels locked and call light in reach. All safety measures in place epr policy. Will continue to monitor, support and encourage according to plan of care.
[2016-12-24 08:36] VITALS: BP 127/68
[2016-12-24] MEDS ORDERED: BUPRENORPHINE HCL 2 MG TAB.SUBL SL SCH (09:00)
[2016-12-24] MEDS ORDERED: LORAZEPAM 1 MG TABLET PO SCH (09:00)
[2016-12-24] MEDS: LORAZEPAM 1 MG TABLET PO SCH ×2 (09:08→20:48)
[2016-12-24] MEDS: ESCITALOPRAM OXALATE 10 MG TABLET PO SCH (09:08)
[2016-12-24] MEDS: GABAPENTIN 300 MG CAPSULE PO SCH ×3 (09:08→20:49)
[2016-12-24] MEDS: busPIRone 10 MG TABLET PO SCH ×3 (09:08→16:27)
[2016-12-24] MEDS: ACETAzolamide 250 MG TABLET PO SCH ×2 (09:08→20:48)
[2016-12-24] MEDS: MULTIVITAMINS,THERAPEUTIC TABLET PO SCH (09:08)
[2016-12-24] MEDS: BUPRENORPHINE HCL 2 MG TAB.SUBL SL SCH ×2 (09:09→20:49)
[2016-12-24 13:01] VITALS: BP 118/86
[2016-12-24] MEDS: HYDROXYZINE PAMOATE 25 MG CAPSULE PO PRN (13:08)
[2016-12-24] MEDS: QUETIAPINE FUMARATE 25 MG TABLET PO PRN (13:10)
--- NOTE | 2016-12-24 13:10 | NUR ---
PRN Administration Pt complains of anxiety and irritability. Non-pharmacological interventions attempted x3 with no relief per pt. Pt inquires of Lucero Pacheco, on the unit at the time, for the availability of Seroquel. Lock Tender Chief Operator administers Seroquel and Vistaril per MD Order to help with anxiety and irritability. Will continue to monitor, support and encourage according to plan of care.
--- NOTE | 2016-12-24 14:10 | NUR ---
Therapist prompted client about group times. Client stated she will attend all groups today.
--- NOTE | 2016-12-24 14:10 | NUR ---
PRN Re-assessment Pt currently resting in room with eyes closed. Medication effective. Will continue to monitor, support and encourage according to plan of care.
[2016-12-24 16:25] VITALS: BP 120/87
--- NOTE | 2016-12-24 19:13 | NUR ---
End of Shift Reported off to night clerk with no further comments, questions or concerns voiced. Pt is a 21 year old female admitted on 12/17/16 for Heroin, Methamphetamine and Klonopin detoxification. Pt is a full code, on a regular diet and has NKA. Pt has PMH of depression, anxiety and a 2012 Spinal Tap. No seizure history. Pt on universal and fall precautions. Pt requested Seroquel and Vistaril, for anxiety and irritability, which was administered at 1310 and was effective.. Last COWS of 6 and CIWA of 6 recorded at 1600. Pt currently on a modified Subutex and Ativan taper, tolerating well. Skin is intact with some discoloration on right FA and track chappell on bi-lateral hands. Pt has been somnolent most of the day, but complains of anxiety, pt affect does not support. Pt is med seeking and makes many requests for different medication. Pt is cooperative and polite. Bed in low position, wheels locked and call light in reach. All safety measures in place per hospital policy.
[2016-12-24 20:00] VITALS: BP 135/93
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
[2016-12-24] MEDS: QUETIAPINE FUMARATE 25 MG TABLET PO SCH (20:53)
[2016-12-24] MEDS ORDERED: QUETIAPINE FUMARATE 25 MG TABLET PO PRN (21:00)
--- NOTE | 2016-12-24 23:11 | NUR ---
PRN MEDICATION: Prn Benadryl 50 mg p.o. given per request for sleep medication.
[2016-12-24] MEDS: KETOROLAC TROMETHAMINE 30 MG INJ IM PRN (23:12)
--- NOTE | 2016-12-24 23:12 | NUR ---
PRN MEDICATION: Prn Toradol 30 mg IM given in RUOQ per request for c/o acute aching back pain, 10/10 pain scale.
--- NOTE | 2016-12-25 | NUR ---
Patient refused to be awakened for V/S to be done at this time.
--- NOTE | 2016-12-25 04:00 | NUR ---
Patient refused to be awakened for V/S to be done at this time.
--- NOTE | 2016-12-25 06:30 | NUR ---
0630 Patient slept a total of 6 hours and she had 3 voids and no stools. Total intake was 710 ml p.o. Prn medications given noted separately per floor protocol. V/SS afebrile, last COWS 5, last CIWA 5. Patient admitted on 12/17/16 for: Heroin, Methamphetamine and Klonopin withdrawal and she has been on a 5-Day Ativan medication taper and a 5-Day Subutex medication taper, both of which she has apparently been tolerating well. Patient is presently sleeping soundly with eyes closed and respirations even, unlabored at 12.
[2016-12-25 08:00] VITALS: BP 107/67
[2016-12-25] MEDS ORDERED: BUPRENORPHINE HCL 2 MG TAB.SUBL SL SCH ×2 (09:00)
[2016-12-25] MEDS ORDERED: LORAZEPAM 1 MG TABLET PO SCH ×2 (09:00)
[2016-12-25] MEDS: MULTIVITAMINS,THERAPEUTIC TABLET PO SCH (09:17)
[2016-12-25] MEDS: ACETAzolamide 250 MG TABLET PO SCH ×2 (09:18→21:16)
[2016-12-25] MEDS: ESCITALOPRAM OXALATE 10 MG TABLET PO SCH (09:18)
[2016-12-25] MEDS: GABAPENTIN 300 MG CAPSULE PO SCH ×3 (09:18→21:16)
[2016-12-25] MEDS: busPIRone 10 MG TABLET PO SCH ×3 (09:18→18:38)
[2016-12-25] MEDS: QUETIAPINE FUMARATE 25 MG TABLET PO SCH ×3 (09:18→18:38)
[2016-12-25] MEDS ORDERED: ESCI10TA PO (09:53)
[2016-12-25] MEDS ORDERED: DIPH50CA37 PO (09:53)
[2016-12-25] MEDS ORDERED: IBUP-1957 PO (09:53)
[2016-12-25] MEDS ORDERED: HYDR-3895 PO (09:53)
[2016-12-25] MEDS ORDERED: QUET25TA PO (09:53)
[2016-12-25] MEDS ORDERED: GABA-534 PO (09:53)
[2016-12-25] MEDS ORDERED: METH-406 PO (09:53)
[2016-12-25] MEDS ORDERED: BUSP10TA3 PO (09:53)
[2016-12-25] MEDS: KETOROLAC TROMETHAMINE 30 MG INJ IM PRN ×2 (10:01→21:19)
--- NOTE | 2016-12-25 10:01 | NUR ---
PRN KETOROLAC IM INJECTION Patient complains of 10/10 pain on back and L armm, achy. PRN ketorolac IM injection given. Will continue to monitor patient.
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
--- NOTE | 2016-12-25 11:01 | NUR ---
REASSESSMENT PRN KETOROLAC IM INJECTION Patient reprot pain level decreased to 8/10, and reports med was effective.
[2016-12-25 12:00] VITALS: BP 104/72
[2016-12-25] MEDS ORDERED: BACLOFEN 10 MG TABLET PO ONE (14:15)
[2016-12-25] MEDS ORDERED: KETOROLAC TROMETHAMINE 30 MG INJ IM ONE (14:15)
[2016-12-25] MEDS: LIDOCAINE 5% PATCH TD SCH (14:28)
--- NOTE | 2016-12-25 14:30 | NUR ---
MD COMMUNICATION MD was notified by charge nurse that patient was complaining of back pain and L arm pain and tachycardic (120). No EKG was necessary as discussed with MD. Patient will be receiving pain additional pain medications.
--- NOTE | 2016-12-25 14:39 | NUR ---
PT WITH COMPLAINTS OF GENERALIZED BODY PAIN AND EXHIBITED INCREASED HR. PLACED A CALL TO MD WITH NEW ORDER FOR X1 DOSE OF TORADOL 30 MG, 10 MG OF BACLOFEN, AND 1 LIDOCAINE PATCH TO LOWER BACK. PAIN SCALE 10/10 AND HR NOTED TO BE AT 120. WILL RE-ASSESS PT.
--- NOTE | 2016-12-25 15:28 | NUR ---
REASSESSMENT KETOROLAC IM INJECTION, BACLOFEN AND LIDOCAINE PATCH Patient reports pain decreased to 5/10. i
[2016-12-25 16:00] VITALS: BP_SYST 119; BP_SYST 143; BP_DIAS 75; BP_DIAS 89
[2016-12-25 18:22] LABS: *AMPHETAMINE, URINE NEGATIVE (NEGATIVE); *BARBITURATE, URINE NEGATIVE (NEGATIVE); *CANNABINOID, URINE NEGATIVE (NEGATIVE); *COCCAINE, URINE NEGATIVE (NEGATIVE); *OPIATE, URINE NEGATIVE (NEGATIVE); *PHENCYCLIDINE SCREEN,URINE NEGATIVE (NEGATIVE)
--- NOTE | 2016-12-25 18:25 | NUR ---
END OF SHIFT Patient is 21 year old female admitted for medically supervised withdrawal from heroin and clonazepam. Patient was released from room restrictions, cooperative at this time. Most recent CIWA: 3 and COWS:4. Patient reports anxiety and back pain and L arm pain. PRN ketorolac IM injection 10:01am. Patient later reports excruciating pain 10/10 on the same sited, elevated HR 120. MD was notified, one time ketorolac IM injection, baclofen and lidocaine patch give, meza decreased to 5/10. Patient is tolerating meals without n/v. night nursenight club manager will continue to monitor patient. Addendum: 12/25/16 at 1852 by NICOLE MCCAULEY RN Patient also remains tachycardic (HR 112). Will continue to monitor patient.
--- NOTE | 2016-12-25 20:00 | NUR ---
START OF SHIFT Patient is 21 year old female admitted for medically supervised withdrawal from heroin and clonazepam. Patient was released from room restrictions, cooperative at this time. Most recent CIWA: 4 and COWS:8. Patient reports anxiety and back pain that radiates to right lower abdominal. PRN ketorolac IM injection 9:19 PM. Patient later reports some relief of pain 6/10 on the same sited. Patient is resting, will continue to monitor patient.
[2016-12-25 20:39] VITALS: BP 107/72
--- NOTE | 2016-12-25 21:50 | NUR ---
RN Reassess Patient verbalized some relief from Toradol injection given, pain 6/10, will continue to monitor patient.
[2016-12-26 00:31] VITALS: BP 123/76
[2016-12-26 04:00] VITALS: BP 108/65
--- NOTE | 2016-12-26 07:11 | NUR ---
End of Shift Patient is 21 year old female admitted for medically supervised withdrawal from heroin and clonazepam. Patient was released from room restrictions, cooperative at this time. Most recent CIWA: 0 and COWS:2. Patient reports anxiety and back pain that radiates to right lower abdominal. PRN ketorolac IM injection 9:19 PM. Patient later reports some relief of pain 6/10 on the same sited. Patient is resting, slept 8 hrs during shift. No BM, but voided once during shift. Endorsed to am nurse.
--- NOTE | 2016-12-26 07:49 | NUR ---
Start of Shift Received report from night staff. Pt is a 21 year old female admitted on 12/17/16 for Heroin, Methamphetamine and Klonopin detoxification. Pt is a full code, on a regular diet and has NKA. Pt has PMH of depression, anxiety and a 2012 Spinal Tap. No seizure history. Pt on universal and fall precautions. Pt was administered Toradol for pain on the executive services administrator, pt reported partial effectiveness. Last COWS of 2 and CIWA of 0 recorded at 0400. Pt has completed 5 day Subutex and Ativan taper, and is scheduled for discharge today. Pt slept a total of 8 hours per report. Skin is intact with some discoloration on right FA and track chappell on bi-lateral hands. Corn Breeder encounters pt in bed resting with eyes closed and even and unlabored respiration. No s/s of distress noted. Bed in low position, wheels locked, side rails up x2 and call light in reach. All safety measures in place per hospital policy. Will continue to monitor, support and encourage according to plan of care.
[2016-12-26 08:10] VITALS: BP 107/73
[2016-12-26] MEDS ORDERED: BUPRENORPHINE HCL 2 MG TAB.SUBL SL SCH (09:00)
[2016-12-26] MEDS: busPIRone 10 MG TABLET PO SCH ×2 (09:10→12:37)
[2016-12-26] MEDS: QUETIAPINE FUMARATE 25 MG TABLET PO SCH ×2 (09:10→12:37)
[2016-12-26] MEDS: LIDOCAINE 5% PATCH TD SCH (09:10)
[2016-12-26] MEDS: GABAPENTIN 300 MG CAPSULE PO SCH (09:10)
[2016-12-26] MEDS: MULTIVITAMINS,THERAPEUTIC TABLET PO SCH (09:10)
[2016-12-26] MEDS: ESCITALOPRAM OXALATE 10 MG TABLET PO SCH (09:10)
[2016-12-26] MEDS: KETOROLAC TROMETHAMINE 30 MG INJ IM PRN (09:10)
--- NOTE | 2016-12-26 09:10 | NUR ---
PRN Toradol Pt complain of pain 10/10 in back and arm. Pt attempted non-pharmacological interventions x3 with no relief, pt requested an IM of Toradol. Primary Health Care Nurse administered IM with TARAH Sweet, in room as witness. Pt tolerated well. Will continue to monitor, support and encourage according to plan of care.
[2016-12-26] MEDS: ACETAzolamide 250 MG TABLET PO SCH (09:17)
--- NOTE | 2016-12-26 10:10 | NUR ---
PRN Re-assessment Pt states the medication was partially effective. States her pain level is 6/10 and she is feeling better. Will continue to monitor, support and encourage according to plan of care.
--- NOTE | 2016-12-26 12:10 | NUR ---
Endorsement Dietitian Teaching provided report to accepting nurse with no further comments, questions or concerns voiced. Pt is a 21 year old female admitted on 12/17/16 for Heroin, Methamphetamine and Klonopin detoxification. Pt is a full code, on a regular diet and has NKA. Pt has PMH of depression, anxiety and a 2012 Spinal Tap. No seizure history. Pt on universal and fall precautions. Pt was administered Toradol for pain at 0910 and pt verbalized partial relief. Pt was scheduled to discharge this am, but has not departed as of yet. No s/s of distress noted. Bed in low position, wheels locked, side rails up x2 and call light in reach. All safety measures in place per hospital policy. Will continue to monitor, support and encourage according to plan of care.
--- NOTE | 2016-12-26 12:11 | NUR ---
Assumed Care: Assumed care for this patient at this time. Patient is a 21 year old female admitted for opiate and BZO dependence. Patient completed taper and will be discharging today. Discharge location still pending. Placed on room restriction due to behavioral issues. VS stable. COWS 3. CIWA 3. Will continue to monitor the patient.
--- NOTE | 2016-12-26 14:06 | NUR ---
Discharged: Patient discharged off the unit at this time in stable condition. VS stable. COWS 1, CIWA 1 due to anxiety. Escorted off the unit with optical engineering manager with all her belongings and valuables.
== END 2016-12-26 14:06 | disposition other institution (70) | DRG 895 ==
LOC: SRC 15:51
PROVIDERS: ADMIT Internal Medicine; ATTEND Internal Medicine
PROC: HZ2ZZZZ Detoxification Services for Substance Abuse Treatment (ICD-10-PCS; principal; 2016-12-17)
PROC: HZ41ZZZ Group Counseling for Substance Abuse Treatment, Behavioral (ICD-10-PCS; 2016-12-18)
PROC: HZ31ZZZ Individual Counseling for Substance Abuse Treatment, Behavioral (ICD-10-PCS; 2016-12-19)
DX: F11.23 Opioid dependence with withdrawal (principal); F13.230 Sedative, hypnotic or anxiolytic dependence with withdrawal, uncomplicated; F15.10 Other stimulant abuse, uncomplicated; F17.210 Nicotine dependence, cigarettes, uncomplicated; G93.2 Benign intracranial hypertension; F31.9 Bipolar disorder, unspecified; F41.0 Panic disorder [episodic paroxysmal anxiety]; B19.20 Unspecified viral hepatitis C without hepatic coma; Z79.899 Other long term (current) drug therapy; Z81.8 Family history of other mental and behavioral disorders; Z83.3 Family history of diabetes mellitus; Z81.1 Family history of alcohol abuse and dependence
CPT/HCPCS: 36415; 70030-TC; 80307; 80324; 80361; 83735; 84703; 85025; 86580; 86592; 86705; 86803; 87340; 87806; 93005; G0480; J1885; Q0163